=== PATIENT | male | born 1970 | race Caucasian/White ===

== ENCOUNTER 2021-03-20 15:48 | Emergency (ER) | payer OTHER, SELFPAY ==
--- NOTE | 2021-03-20 15:54 | ED.EAR ---
HPI - Ear Problem General Chief complaint: Ear Stated complaint: rt ear pain Time Seen by Provider: 03/20/21 16:09 Source: patient and RN notes reviewed Mode of arrival: ambulatory Limitations: no limitations History of Present Illness HPI Narrative: 50-year-old male presents concern for hearing loss, ringing in the ear, throbbing in his right ear. He denies any sudden pain, drainage from the ear, bleeding. Denies any upper respiratory symptoms such as rhinorrhea or nasal congestion. Denies fever. MD Complaint: decreased hearing and other (Tinnitus) Related Data Home Medications Medication Instructions Recorded Confirmed Zoloft 03/20/21 gabapentin 03/20/21 Allergies Allergy/AdvReac Type Severity Reaction Status Date / Time No Known Allergies Allergy Verified 03/20/21 16:09 Review of Systems Review of Systems: CONSTITUTIONAL: Denies malaise, chills, sweats, or fever. EYES: Denies visual changes, redness, or discharge. ENT: Denies rhinorrhea, congestion, sinus pain, and sore throat. Reports tinnitus and decreased hearing in the right ear CARDIOVASCULAR: Denies chest pain, palpitations, or edema. RESPIRATORY: Denies cough. Denies dyspnea. GASTROINTESTINAL: Denies abdominal pain, nausea, vomiting, diarrhea SKIN: Denies rash or itching. MUSCULOSKELETAL: Denies myalgia. NEUROLOGIC: Denies headache. All systems reviewed & are unremarkable except as noted in HPI and below PMFSH Comments At time of signature, agree with nursing past medical, surgical, social and family history. There is no relevant family history pertinent to the presenting complaint Exam Narrative: GENERAL: Well-appearing, well-nourished, and in no acute distress. HEAD: Normocephalic EYES: PERRLA, conjunctivae clear ENT: Nares clear, turbinates edematous, clear discharge. Mucous membranes moist. TM pearly ortega with sharp light reflex bilaterally; no tragal tenderness. Oropharynx not erythematous without lesions. Tonsils not enlarged and without exudate, no drooling, no hoarseness, no trismus, uvula midline. NECK: Supple. No lymphadenopathy CHEST: Clear to auscultation, breath sounds equal. No wheezing, rhonchi, rales, or stridor. No respiratory distress, speaks in full sentences. HEART: Regular rate and rhythm. No murmur heard. SKIN: Warm, dry, no rash. NEURO: Alert and oriented x3. PSYCH: Normal mood and affect Course Course Emergency Course: Patient is aware of diagnosis, understands and agrees to treatment plan. Anticipatory guidance given. Patient agrees to follow-up as directed and is aware of reasons to seek care at the emergency department. Portions of this record may have been created with voice recognition software Level of Care: Express Care Visit Vital Signs Vital signs: Vital Signs Temperature 97 F L 03/20/21 16:05 Pulse Rate 95 03/20/21 16:05 Respiratory Rate 18 03/20/21 16:05 Blood Pressure 127/82 03/20/21 16:05 Pulse Oximetry 98 03/20/21 16:05 Temperature 97 F L 03/20/21 16:05 Pulse Rate 95 03/20/21 16:05 Respiratory Rate 18 03/20/21 16:05 Blood Pressure 127/82 03/20/21 16:05 Pulse Oximetry 98 03/20/21 16:05 Reviewed. Medical Decision Making MDM Narrative Medical decision making narrative: Differential diagnosis considered: [place] virus, strep pharyngitis, allergic rhinitis, upper respiratory tract infection, sinusitis, rhinosinusitis, nasopharyngitis. viral pharyngitis, otitis media, otitis externa, otitis effusion, cerumen impaction, foreign body, central hearing loss. Exam findings show no acute concerns or changes; patient is non-toxic appearing and is in no distress. Patient is appropriate for outpatient treatment and follow-up. Vital Signs Vital Signs: Vital Signs Temperature 97 F L 03/20/21 16:05 Pulse Rate 95 03/20/21 16:05 Respiratory Rate 18 03/20/21 16:05 Blood Pressure 127/82 03/20/21 16:05 Pulse Oximetry 98 03/20/21 16:05 Temperature 97 F L 03/20/21
[2021-03-20 16:05] VITALS: BP 127/82; PULSE 95; RESP 18; TEMP 36.1; O2SAT 98
== END 2021-03-20 16:24 | disposition home or self-care (01) ==
PROVIDERS: Emergency Provider Nurse Practitioner
DX: H91.91 Unspecified hearing loss, right ear (principal)
CPT/HCPCS: 99202; G0463